=== PATIENT | female | born 1970 | race Caucasian/White ===

== ENCOUNTER 2024-11-23 14:49 | Emergency (ER) | payer OTHER ==
[~2024-11-23] VITALS: Ht 165.1 cm; Wt 73.5 kg
[2024-11-23 14:55] VITALS: TEMP 99.4
[2024-11-23 16:46] LABS: BASOPHILS % 0.4 % (0.0-1.0); EOSINOPHILS % 0.1 % (0.0-6.0); HEMATOCRIT 37.2 % (34.2-44.1); HEMOGLOBIN 13.1 g/dL (12.0-16.0); LYMPHOCYTES # (AUTO) 1.4 (1.0-3.2); LYMPHOCYTES % 15.7 % (18.0-39.1); MEAN CORPUSCULAR HEMOGLOBIN 34.7 pg (28-32); MEAN CORPUSCULAR HGB CONC 35.2 g/dL (31-35); MEAN CORPUSCULAR VOLUME 98.7 fL (81-99); MONOCYTES # (AUTO) 0.4 (0.2-0.8); MONOCYTES % 4.6 % (4.4-11.3); PLATELET COUNT 261 x10e3/uL (140-360); RED BLOOD COUNT 3.77 x10e6/uL (3.6-5.1); WHITE BLOOD COUNT 8.91 x10e3/uL (4.8-10.8)
[2024-11-23 16:53] LABS: CLARITY,URINE SL CLOUDY (CLEAR); COLOR,URINE YELLOW (YELLOW)
[2024-11-23 16:54] LABS: BILIRUBIN,URINE NEGATIVE (NEGATIVE); GLUCOSE, URINE NEGATIVE (NEGATIVE); KETONES,URINE TRACE (NEGATIVE); LEUKOCYTE ESTERASE ,URINE TRACE (NEGATIVE); NITRITE,URINE NEGATIVE (NEGATIVE); PH,URINE 7 (5 - 7); PROTEIN,URINE DIPSTICK NEGATIVE (NEGATIVE); URINE UROBILINOGEN 1 mg/dL (0.2 - 1)
[2024-11-23 17:09] LABS: ALBUMIN 3.5 g/dL (3.5-5.0); ALBUMIN/GLOBULIN RATIO 1.1 (0.8-2.0); ANION GAP 19.4 mmol/L (8-16); BILIRUBIN,TOTAL 0.6 mg/dL (0.2-1.2); CALCIUM 8.5 mg/dL (8.4-10.2); CREATININE, SERUM 0.73 mg/dL (0.57-1.11); TOTAL PROTEIN 6.6 g/dL (6.5-8.1)
[2024-11-23 17:10] LABS: BACTERIA,URINE MANY /HPF; EPITHELIAL CELLS,URINE FEW /LPF; RBC,URINE 0-5 /HPF (0-5)
[2024-11-23 17:13] LABS: POTASSIUM 3.4 mmol/L (3.5-5.1)
[2024-11-23] MEDS ORDERED: CEFDINIR300 MG PO (17:32)
[2024-11-23 18:30] VITALS: PULSE 74; RESP 22; O2SAT 99
== END 2024-11-23 19:09 | disposition home or self-care (01) ==
LOC: ER 15:50
DX: R42 Dizziness and giddiness (principal); N39.0 Urinary tract infection, site not specified; R51.9 Headache, unspecified; R05.9 Cough, unspecified; R94.31 Abnormal electrocardiogram [ECG] [EKG]
CPT/HCPCS: 36415; 70450; 71045; 80053; 81001; 82140; 84484; 85025; 93005; 99283